=== PATIENT | male | born 1995 | race African-American/Black ===

== ENCOUNTER → 2025-03-23 | Outpatient (CLI) | payer MEDICAID, SELFPAY ==
--- NOTE | 2025-03-23 12:30 | XR_ITS ---
Examination: MRI right ankle, without contrast Date and time of exam: March 23, 2025 1327 hours INDICATIONS: Injury to the ankle February 02, 2025 with persistent pain and tenderness Technique: Multiple axial sagittal and coronal images of the right ankle have been obtained with the Siemens high-resolution 1.5 [place] MRI scanner. Images obtained include T2-weighted fat-suppressed sagittal sections, TR 3500, TE 46, T2 weighted coronal fat suppressed images, TR 3050, TE 84, T2-weighted transverse fat suppressed images, TR 3260, TE 63, proton density transverse images, TR 4720 TE 46, and T1 weighted coronal images, TR 560, TE 13. Findings: Marrow edema lateral inferior portion of the talus, 25 mm No avascular necrosis negative for sinus Tarsi syndrome Achilles tendon and plantar fascia intact Anterior posterior inferior tibiofibular ligaments intact Mild strain posterior talofibular ligament Flexor extensor tendons intact IMPRESSION: Recommend CT scan ankle follow-up to exclude microtrabecular fracture lines involving the lateral inferior portion of the talus
--- NOTE | 2025-03-23 13:00 | XR_ITS ---
Examination: MRI right foot, without contrast Date and time of exam: March 23, 2025 1237 hours INDICATIONS: Injury to the foot February 02, 2025, unable to bear weight on the foot TECHNIQUE: Multiple axial sagittal coronal MRI images of the foot FINDINGS: Marrow edema involving the lateral inferior surface of the talus Achilles tendon intact No plantar fasciitis negative for sinus Tarsi syndrome No Lisfranc tarsometatarsal dislocation No foreign body IMPRESSION: Recommend CT scan ankle foot follow-up without contrast to exclude nondisplaced fractures lateral inferior talus
== END | disposition home or self-care (01) ==
PROVIDERS: Referring Provider General Practice; Visit Provider General Practice
DX: S92.191A Other fracture of right talus, initial encounter for closed fracture (principal); X58.XXXA Exposure to other specified factors, initial encounter
CPT/HCPCS: 73718; 73721

== ENCOUNTER → 2025-04-26 | Outpatient (CLI) | payer MEDICAID, SELFPAY ==
--- NOTE | 2025-04-26 14:30 | XR_ITS ---
Examination: CT right ankle, without contrast. 2-D sagittal reconstructions. 2-D coronal reconstructions. 3-D reconstructions. Date and time of exam:April 26, 2025 1442 hours INDICATIONS: Right foot and ankle pain one month, microtrabecular fracture lines involving the talus on MRI ankle March 23, 2025 CTDI: vol (mGy):5.66 DLP: (mGycm):122 Technique: Multiple 1.25 mm axial sections of the right ankle without intravenous contrast have been obtained. 2-D sagittal and coronal reconstructions have been obtained. 3-D reconstructions have been obtained. Low dose protocols were performed. One or more of the following dose reduction techniques were used; automated exposure control, adjustment of the mA and/or KV according to patient size, use of iterative reconstruction technique. 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
--- NOTE | 2025-04-26 15:00 | XR_ITS ---
Examination: CT right foot, without contrast. 2-D sagittal reconstructions. 2-D coronal reconstructions. 3-D reconstructions. Date and time of exam:April 26, 2025 1442 hours INDICATIONS: Marrow edema involving the lateral inferior surface of the talus on MRI study March 23, 2025 CTDI: vol (mGy):5.51 DLP: (mGycm):126 Technique: Multiple 1.25 mm axial sections of the right foot have been obtained. 2-D sagittal and coronal reconstructions have been obtained. 3-D reconstructions have been obtained. Low dose protocols were performed. One or more of the following dose reduction techniques were used; automated exposure control, adjustment of the mA and/or KV according to patient size, use of iterative reconstruction technique. Findings: Small old fracture fragments inferior to the talus in the subtalar joint No acute fracture involving the talus calcaneus cuboid and navicular or cuneiforms No Lisfranc tarsometatarsal fracture or dislocations Digits intact IMPRESSION: Small old fracture fragments inferior to the talus in the subtalar joint
== END | disposition home or self-care (01) ==
PROVIDERS: Referring Provider General Practice; Visit Provider General Practice
DX: S93.401D Sprain of unspecified ligament of right ankle, subsequent encounter (principal); X58.XXXD Exposure to other specified factors, subsequent encounter; M19.071 Primary osteoarthritis, right ankle and foot
CPT/HCPCS: 73700